=== PATIENT | female | born 1955 | race Caucasian/White ===

== ENCOUNTER 2022-08-27 13:38 | Inpatient (IN) | payer MEDICARE, OTHER ==
[2022-08-27 17:13] LABS: Hemoglobin 16.6 g/dL (12.0-16.0); Mean Corpuscular HGB CONC 31.9 g/dL (32.0-36.0); Mean Corpuscular Hemoglobin 29.8 pg (27.0-31.0); Mean Corpuscular Volume 93.6 fl (78.0-98.0); Mean Platelet Volume 8.5 fL (7.4-10.4); Platelet Count 255 10x3/uL (130-400); RBC Distribution Width 13.8 % (11.5-14.5); Red Blood Cell (RBC) Count 5.58 mill/uL (4.20-5.40); White Blood Cell (WBC) Count 18.7 10x3/uL (4.8-10.8)
[2022-08-27 17:27] LABS: Band 1 % (5-11); Lymphocytes 6 % (21-51); MDiff Complete? YES; Monocytes 12 % (0-10); Neutrophil 80 % (42-75); Platelet Morphology Comment Appears Adequate; RBC Morphology Normal; Reactive Lymphocytes 1 % (0-10)
[2022-08-27 17:33] LABS: ALT (SGPT) 266 U/L (8-55); AST (SGOT) 165 U/L (5-34); Albumin 3.5 g/dL (3.4-4.8); Alkaline Phosphatase 90 U/L (40-110); Anion Gap 14 mmol/L (10-20); BUN (Urea Nitrogen) 51 mg/dL (9.8-20.1); Calc. Creatinine Clearance 0 mL/min (70-130); Calcium 9.1 mg/dL (7.8-10.44); Carbon Dioxide 21 mmol/L (23-31); Chloride 111 mmol/L (98-107); Estimated GFR 30; Globulin 3.2 g/dL (2.4-3.5); Glucose 74 mg/dL (80-115); Potassium 4.6 mmol/L (3.5-5.1); Protein, Total 6.7 g/dL (5.8-8.1); Sodium 141 mmol/L (136-145)
[2022-08-27 19:13] LABS: Bilirubin Negative (Negative); Blood, Urine Negative (Negative); Clarity Clear (Clear); Glucose, Urine (Dipstick) Normal (Negative); Ketone, Urine Negative (Negative); Leukocyte Negative Leu/uL (Negative); Nitrite Negative (Negative); Protein, Urine (Dipstick) 20 mg/dL (Neg-Trace); Specific Gravity, Urine 1.018 (1.002-1.036); Urobilinogen Normal mg/dL (Less than 2); pH, Urine 5.5 (5.0-9.0)
[2022-08-27 21:17] LABS: SARS-CoV-2 NAA Rapid Test DETECTED (NotDetected)
[2022-08-27] MEDS ORDERED: Acetaminophen 325 MG TAB PO PRN (21:48)
[2022-08-27] MEDS ORDERED: Acetaminophen 650 MG Suppository PR PRN (21:48)
[2022-08-27] MEDS ORDERED: Dextrose 5% in Water 1,000 ML IV PRN (21:48)
[2022-08-27] MEDS ORDERED: Dextrose 50% Abboject 50 ML SYRINGE SLOW IVP PRN (21:48)
[2022-08-27] MEDS ORDERED: Ondansetron ODT 4 MG TAB PO PRN (21:48)
[2022-08-27] MEDS ORDERED: Ondansetron PF 4 MG/2 ML Vial IVP PRN (21:48)
[2022-08-27] MEDS ORDERED: HumaLOG 300 UNITS/3 ML VIAL SC PRN ×2 (21:48)
[2022-08-27] MEDS ORDERED: Morphine 4 MG/ML VIAL SLOW IVP PRN (21:55)
[2022-08-27 23:48] VITALS: BMI 43.6
[2022-08-28] MEDS: traMADol HCl 50 MG TAB PO PRN ×3 (03:58→19:21)
[2022-08-28] MEDS ORDERED: Benzonatate 100 MG CAP PO PRN (04:47)
[2022-08-28] MEDS ORDERED: Rosuvastatin 20 MG TAB PO SCH (09:00)
[2022-08-28] MEDS ORDERED: Lisinopril 5 MG TAB PO SCH (09:00)
[2022-08-28] MEDS ORDERED: Carvedilol 6.25 MG TAB PO SCH (09:00)
[2022-08-28] MEDS: Ascorbic Acid 500 mg Chewable Tablet PO SCH (09:23)
[2022-08-28 09:24] LABS: Hemoglobin 15.3 g/dL (12.0-16.0); Mean Corpuscular HGB CONC 32.2 g/dL (32.0-36.0); Mean Corpuscular Hemoglobin 30.3 pg (27.0-31.0); Mean Platelet Volume 8.3 fL (7.4-10.4); Platelet Count 220 10x3/uL (130-400); RBC Distribution Width 13.7 % (11.5-14.5); Red Blood Cell (RBC) Count 5.05 mill/uL (4.20-5.40); White Blood Cell (WBC) Count 12.5 10x3/uL (4.8-10.8)
[2022-08-28] MEDS: hydrALAZINE 25 MG TAB PO SCH ×3 (09:24→20:18)
[2022-08-28] MEDS: Cholecalciferol (Vitamin D3) 400 UNITS TAB PO SCH (09:24)
[2022-08-28] MEDS: Amlodipine 10 MG TAB PO SCH (09:24)
[2022-08-28] MEDS: Zinc Sulfate 220 MG CAP PO SCH (09:24)
[2022-08-28 09:37] LABS: ALT (SGPT) 221 U/L (8-55); AST (SGOT) 113 U/L (5-34); Alkaline Phosphatase 73 U/L (40-110); Bilirubin, Direct 0.4 mg/dL (0.1-0.3); Bilirubin, Total 0.8 mg/dL (0.2-1.2); Protein, Total 5.6 g/dL (5.8-8.1)
[2022-08-28 09:38] LABS: Anion Gap 13 mmol/L (10-20); BUN (Urea Nitrogen) 47 mg/dL (9.8-20.1); Calc. Creatinine Clearance 57 mL/min (70-130); Calcium 8.7 mg/dL (7.8-10.44); Carbon Dioxide 23 mmol/L (23-31); Chloride 111 mmol/L (98-107); Estimated GFR 29; Glucose 105 mg/dL (80-115); Potassium 4.8 mmol/L (3.5-5.1); Sodium 142 mmol/L (136-145)
[2022-08-28 09:43] LABS: Eosinophils 2 % (0-10); Lymphocytes 16 % (21-51); MDiff Complete? YES; Monocytes 14 % (0-10); Neutrophil 68 % (42-75); Platelet Morphology Comment Appears Adequate
[2022-08-28 09:56] LABS: HBCM Index 0.07 S/CO (0-0.79); HBSAg Index 0.31 S/CO (0-0.99); Hep A IgM AB Non-Reactive (NonReactive); Hep A IgM S/CO 0.33 S/CO (0-0.79); Hep B Surf Ag Non-Reactive S/CO (NonReactive); Hep C IgG Ab Non-Reactive (NonReactive); Hepatitis B Core IgM Abs Non-Reactive (NonReactive)
[2022-08-29] MEDS: traMADol HCl 50 MG TAB PO PRN ×4 (01:39→22:01)
[2022-08-29 04:58] LABS: #Basophils 0.1 thou/uL (0.0-0.2); #Eosinphils 0.2 thou/uL (0.0-0.7); #Neutrophils 10.3 thou/uL (1.40-6.50); %Basophils 0.7 % (0.0-1.0); %Eosinophils 1.2 % (0.0-10.0); %Lymphocytes 8.3 % (21.0-51.0); %Monocytes 7.7 % (0.0-10.0); %Neutrophils 82.2 % (42.0-75.0); Hemoglobin 14.7 g/dL (12.0-16.0); Mean Corpuscular HGB CONC 32.7 g/dL (32.0-36.0); Mean Corpuscular Hemoglobin 30.8 pg (27.0-31.0); Mean Corpuscular Volume 94.1 fl (78.0-98.0); Mean Platelet Volume 8.5 fL (7.4-10.4); Platelet Count 192 10x3/uL (130-400); RBC Distribution Width 13.7 % (11.5-14.5); Red Blood Cell (RBC) Count 4.77 mill/uL (4.20-5.40); White Blood Cell (WBC) Count 12.5 10x3/uL (4.8-10.8)
[2022-08-29 05:18] LABS: Anion Gap 10 mmol/L (10-20); BUN (Urea Nitrogen) 46 mg/dL (9.8-20.1); Calc. Creatinine Clearance 57 mL/min (70-130); Carbon Dioxide 25 mmol/L (23-31); Chloride 110 mmol/L (98-107); Potassium 4.6 mmol/L (3.5-5.1); Sodium 140 mmol/L (136-145)
[2022-08-29 05:19] LABS: CK (CPK) 66 U/L (29-168); Calcium 8.1 mg/dL (7.8-10.44); Estimated GFR 29; Glucose 110 mg/dL (80-115)
[2022-08-29] MEDS: Zinc Sulfate 220 MG CAP PO SCH (09:03)
[2022-08-29] MEDS: Cholecalciferol (Vitamin D3) 400 UNITS TAB PO SCH (09:03)
[2022-08-29] MEDS: Ascorbic Acid 500 mg Chewable Tablet PO SCH (09:03)
[2022-08-29] MEDS: Amlodipine 10 MG TAB PO SCH (09:03)
[2022-08-29] MEDS: hydrALAZINE 25 MG TAB PO SCH ×3 (09:03→22:01)
[2022-08-29 15:50] LABS: ALT (SGPT) 132 U/L (8-55); AST (SGOT) 45 U/L (5-34); Albumin 2.6 g/dL (3.4-4.8); Alkaline Phosphatase 75 U/L (40-110); Bilirubin, Direct 0.3 mg/dL (0.1-0.3); Bilirubin, Total 0.7 mg/dL (0.2-1.2); Protein, Total 5.3 g/dL (5.8-8.1)
[2022-08-30] MEDS: traMADol HCl 50 MG TAB PO PRN ×2 (04:28→09:38)
[2022-08-30] MEDS: Zinc Sulfate 220 MG CAP PO SCH (09:38)
[2022-08-30] MEDS: Ascorbic Acid 500 mg Chewable Tablet PO SCH (09:38)
[2022-08-30] MEDS: hydrALAZINE 25 MG TAB PO SCH ×2 (09:38→16:47)
[2022-08-30] MEDS: Cholecalciferol (Vitamin D3) 400 UNITS TAB PO SCH (09:38)
[2022-08-30] MEDS: Amlodipine 10 MG TAB PO SCH (09:39)
[2022-08-30 12:07] VITALS: BP 120/59; TEMP 97
[2022-08-30 13:49] LABS: Anion Gap 15 mmol/L (10-20); BUN (Urea Nitrogen) 40 mg/dL (9.8-20.1); Calc. Creatinine Clearance 60 mL/min (70-130); Calcium 8.8 mg/dL (7.8-10.44); Carbon Dioxide 18 mmol/L (23-31); Chloride 109 mmol/L (98-107); Estimated GFR 31; Glucose 116 mg/dL (80-115); Potassium 5.1 mmol/L (3.5-5.1); Sodium 137 mmol/L (136-145)
[2022-08-31] MEDS ORDERED: FLU VACC QS2022-23(65YR UP)/PF 240 MCG/0.7 ML SYRINGE IM ONE (09:00)
== END 2022-08-30 17:32 | disposition home health service (06) | DRG 682 ==
LOC: ERS 13:38 → T4-A 21:05 → 2NO 08-28 08:46 → OBSVTOIN 08-29 18:18
PROVIDERS: ADMIT Student in an Organized Health Care Education/Training Program; ATTEND Internal Medicine
PROC: 8E0ZXY6 Isolation (ICD-10-PCS; principal; 2022-08-29)
DX: N17.9 Acute kidney failure, unspecified (principal); U07.1 COVID-19; Z68.41 Body mass index [BMI] 40.0-44.9, adult; T79.6XXA Traumatic ischemia of muscle, initial encounter; N18.4 Chronic kidney disease, stage 4 (severe); G89.29 Other chronic pain; I12.9 Hypertensive chronic kidney disease with stage 1 through stage 4 chronic kidney disease, or unspecified chronic kidney disease; E11.22 Type 2 diabetes mellitus with diabetic chronic kidney disease; E86.0 Dehydration; E78.5 Hyperlipidemia, unspecified; E88.09 Other disorders of plasma-protein metabolism, not elsewhere classified; D72.829 Elevated white blood cell count, unspecified; E66.01 Morbid (severe) obesity due to excess calories; W19.XXXA Unspecified fall, initial encounter; I48.0 Paroxysmal atrial fibrillation; E78.2 Mixed hyperlipidemia; D63.1 Anemia in chronic kidney disease; Z88.2 Allergy status to sulfonamides; Z79.82 Long term (current) use of aspirin; Z79.4 Long term (current) use of insulin; Z79.899 Other long term (current) drug therapy; Z90.49 Acquired absence of other specified parts of digestive tract; Z98.890 Other specified postprocedural states
CPT/HCPCS: 36415; 36416; 51701; 71045; 76705; 80048; 80053; 80074; 80076; 81003; 82550; 83605; 85025; 87040; 87086; 93005; 93010; 93306; 96372; G0378; J1650; J2405